=== PATIENT | female | born 1960 | race Caucasian/White ===

== ENCOUNTER 2019-02-24 06:40 | Emergency (ER) | payer SELFPAY ==
[~2019-02-24] VITALS: Ht 154.9 cm; Wt 52.3 kg
[~2019-02-24 06:40] MED LIST: ELIMITE60 GM TP; GOOD NEIGHBOR200 M1 PO; STROMECTOL3 MG PO
[2019-02-24] MEDS ORDERED: PREDNISONE10 MG PO (07:16)
[2019-02-24 07:41] VITALS: BP 123/83
== END 2019-02-24 07:41 | disposition home or self-care (01) ==
LOC: ED 06:40
DX: L23.7 Allergic contact dermatitis due to plants, except food (principal); F17.210 Nicotine dependence, cigarettes, uncomplicated